=== PATIENT | male | born 1975 | race African-American/Black ===

== ENCOUNTER 2020-03-28 17:27 | Emergency (ER) | payer SELFPAY ==
[~2020-03-28] VITALS: Ht 182.9 cm; Wt 88.0 kg
[2020-03-28] MEDS ORDERED: AMOX/K CLAV875 M1 PO (18:03)
[2020-03-28] MEDS ORDERED: NO HOME MEDS (18:34)
[2020-03-28 19:22] VITALS: BP 138/89
== END 2020-03-28 19:22 | disposition home or self-care (01) | DRG 605 ==
LOC: ED 17:27
DX: S51.852A Open bite of left forearm, initial encounter (principal); W54.0XXA Bitten by dog, initial encounter; Y92.410 Unspecified street and highway as the place of occurrence of the external cause

== ENCOUNTER 2021-04-29 14:11 | Emergency (ER) | payer SELFPAY ==
[~2021-04-29 14:11] MED LIST: AMOX/K CLAV875 M1 PO; NO HOME MEDS
[2021-04-29 15:37] LABS: HEMATOCRIT 43.9 % (39.0-50.0); HEMOGLOBIN 14.8 g/dl (14.0-18.0); MEAN CELL VOLUME 89.4 fL CALC (80.0-100.0); MEAN CORPUSCULAR HGB 30.1 pG CALC (26.0-32.0); MEAN CORPUSCULAR HGB CONC 33.7 g/dL CAL (32.0-36.0); NEUT# 2.09 thou/uL (1.82-7.42); RED BLOOD COUNT 4.91 mill/uL (4.70-6.10); RED CELL DISTRI WIDTH 12.7 % (11.5-15.5)
[2021-04-29 15:45] LABS: ALBUMIN 4.4 g/dL (3.2-5.0); ALKALINE PHOSPHATASE 130 u/l (38-126); ANION GAP 10 (6-22 (CALC)); BILIRUBIN, TOTAL 0.6 mg/dL (0.0-1.4); BUN 9 mg/dL (9-20); BUN/CREATININE RATIO 7 (12-20 (CALC)); CARBON DIOXIDE 31 mmol/l (22-30); CHLORIDE 98 mmol/l (95-108); CREATININE 1.3 mg/dL (0.7-1.3); GFR 60 ML/MIN (>=60 (CALC)); GFR FOR AFR.AMER. > 60 ML/MIN (>=60 (CALC)); LIPASE 53 u/l (23-300); POTASSIUM 3.8 mmol/l (3.5-5.1); SGOT/AST 60 u/l (17-59); SODIUM 135 mmol/l (137-146); TOTAL PROTEIN 7.9 g/dL (6.3-8.2)
[2021-04-29 15:56] LABS: MYOGLOBIN 47 ng/mL (0 - 121)
[2021-04-29 16:04] LABS: URINE BILIRUBIN - DIPSTICK NEGATIVE (NEGATIVE); URINE BLOOD DIPSTICK NEGATIVE (NEGATIVE); URINE CLARITY CLEAR; URINE COLOR YELLOW; URINE GLUCOSE - DIPSTICK NEGATIVE (NEGATIVE); URINE KETONE NEGATIVE (NEGATIVE); URINE LEUK ESTERASE NEGATIVE (Negative); URINE NITRITE - DIPSTICK NEGATIVE (Negative); URINE PROTEIN - DIPSTICK NEGATIVE (NEG-TRACE); URINE UROBILINOGEN - DIPSTICK 0.2 E.U./dL (0.2)
[2021-04-29 18:56] VITALS: BP 166/98
== END 2021-04-29 19:03 | disposition home or self-care (01) | DRG 897 ==
LOC: ED 14:11
DX: F14.10 Cocaine abuse, uncomplicated (principal)

== ENCOUNTER 2023-09-29 20:14 | Emergency (ER) | payer OTHER ==
[~2023-09-29] VITALS: Ht 182.9 cm; Wt 92.0 kg
[2023-09-29 22:40] VITALS: BP 153/90
== END 2023-09-29 22:40 | disposition home or self-care (01) | DRG 923 ==
LOC: ED 20:14
DX: Z04.3 Encounter for examination and observation following other accident (principal); I10 Essential (primary) hypertension; Z72.0 Tobacco use